=== PATIENT | male | born 1990 | race Caucasian/White ===

== ENCOUNTER 2019-08-02 01:22 | Emergency (ER) | payer BC, OTHER ==
[~2019-08-02 01:22] MED LIST: /BACIOPOI TOP; CELE1CAP4 OR; VICO5TAB OR; no home meds
[2019-08-02] MEDS ORDERED: ACETAMINOPHEN TAB 650MG DOSE (2X325MG) As Ordered ONE (04:57)
[2019-08-02] MEDS ORDERED: PERC5TAB12 PO (05:45)
--- NOTE | 2019-08-02 09:04 | REP ---
Right shoulder three views : Comparison is 03/21/2011. There is no fracture or dislocation. Mineralization and joint spaces are normal. There are no calcifications or foreign bodies. Impression: Negative right shoulder . There is no interval change. Electronically Signed by Rigo Castillo MD 08/02/2019 08:56 A
== END 2019-08-02 06:04 | disposition home or self-care (01) ==
LOC: M ED 01:22
DX: M25.511 Pain in right shoulder (principal); Z88.2 Allergy status to sulfonamides; Z79.899 Other long term (current) drug therapy

== ENCOUNTER → 2019-08-31 | Outpatient (CLI) | payer BC ==
[~2019-08-31] MED LIST changes: +CONRAY-43 43% 50ML VIAL (Q9960) As Ordered ONE; +PERC5TAB12 PO; +PROHANCE 279.3MG/ML 5ML VIAL (A9576) As Ordered ONE
--- NOTE | 2019-08-31 10:48 | REP ---
MR ARTHROGRAM RIGHT SHOULDER: TECHNIQUE: Axial T2 fat sat, coronal oblique T1, T2 fat sat, post arthrogram axial T1 fat sat, proton density, coronal oblique T1 fat sat, T2 sat, sagittal oblique T2 fat sat, ABER T1 fat sat. The rotator cuff tendons are intact with no tear. Acromioclavicular joint does not demonstrate significant hypertrophic change. There is slight downward sloping of the acromion, which is type 2. The biceps tendon is within the bicipital groove with no tenosynovitis. There is no Hill-Sachs deformity. The deltoid muscle demonstrates no abnormal signal. The biceps labral complex is intact. No SLAP tear is seen. However, there is an extensive tear of the posterior labrum which also involves the bony glenoid posteriorly, consistent with reverse Bankart lesion. The defect at this location breaches the posterior cortex, and there is joint fluid extending posterior to the scapula, extending approximately 6 cm medially, with an AP thickness of the fluid 5 mm in maximum craniocaudal dimension, medially 2.4 cm. Within the posterior scapular fluid, there are multiple calcific bodies, most subcentimeter in size with the largest measuring 1.4 cm maximally. There also appears to be a tear of the anterior labrum. There is no joint effusion. IMPRESSION: Reverse Bankart lesion. There is a posterior labral tear with associated defect in the posterior bony glenoid. The defect breaches the posterior glenoid cortex with joint fluid extending medially posterior to the scapula, as discussed above. Within the joint fluid, there are multiple calcific bodies. There is also an anterior labral tear. Electronically Signed by Rigo Bhagat MD 09/02/2019 10:19 A
--- NOTE | 2019-09-02 17:47 | REP ---
Reason For Exam/Comment: Right shoulder pain Procedure: Right shoulder MRI arthrogram The procedure was performed by MARELY Mckenzie, under the direct supervision of Dr. Bhagat. The benefits and risks including but not limited to pain, infection, bleeding and anaphylaxis were explained to the patient and informed consent was obtained both verbally and written. Directly prior to the start of the procedure, a formal timeout was completed in the procedure room. Technique: The right glenohumeral joint space was localized using fluoroscopic guidance. The skin was prepped and draped in the usual sterile fashion. 4 mL of 1% lidocaine was used as a local anesthetic. Using fluoroscopic guidance a 22-gauge spinal needle was inserted and advanced to the right glenohumeral joint space. 1 mL of Conray 43 was injected to verify needle placement. 12 mL of a solution containing 20 ml of sterile saline and a 0.15 ml of ProHance was injected into the joint. The needle was removed and the patient was taken MRI for post procedural imaging. The patient tolerated the procedure well and there were no immediate complications. 0.1 minutes of fluoroscopy time was utilized for this procedure. Some fluoroscopic images are performed with last image hold technology. These images require no additional radiation. Reviewed by MARELY Villegas 08/31/2019 08:42 A Electronically Signed by Rigo Bhagat MD 09/02/2019 05:38 P
== END ==
LOC: M RADPRO 06:41
PROVIDERS: ATTEND Orthopaedic Surgery Sports Medicine
DX: M75.81 Other shoulder lesions, right shoulder (principal); M25.511 Pain in right shoulder
CPT/HCPCS: 23350; 73223; 77002; A9576; Q9960

== ENCOUNTER → 2024-12-19 | Outpatient (CLI) | payer BC ==
[~2024-12-19] MED LIST changes: -CONRAY-43 43% 50ML VIAL (Q9960) As Ordered ONE; -PROHANCE 279.3MG/ML 5ML VIAL (A9576) As Ordered ONE
== END ==
LOC: M OUTALCOH 07:55
PROVIDERS: ATTEND Psychiatry & Neurology Psychiatry
DX: Z03.89 Encounter for observation for other suspected diseases and conditions ruled out (principal)

== ENCOUNTER → 2025-02-15 | Outpatient (CLI) | payer BC | LOC: M RAD 09:55 | PROVIDERS: ATTEND Surgery | DX: K43.9 Ventral hernia without obstruction or gangrene (principal) ==